=== PATIENT | male | born 1995 | race Caucasian/White ===

== ENCOUNTER 2022-07-07 09:47 | Emergency (ER) | payer OTHER, SELFPAY ==
--- NOTE | ~2022-07-07 | XR_ITS ---
XR chest 2V DATE: 07/07/2022 11:45 INDICATION: Fever, cough TECHNIQUE: PA and lateral views COMPARISON: None FINDINGS: Normal heart size. No hilar or mediastinal enlargement. No pulmonary infiltrate or consolid ation, pleural effusion or pulmonary vascular congestion or pneumothorax. Included skeletal structures are unremarkable. IMPRESSION: Negative Reviewed, dictated and finalized at location [facility]. CONTENT MANAGER IMPRESSION: Negative
--- NOTE | ~2022-07-07 | CT_ITS ---
EXAMINATION: CT abdomen pelvis w con DATE: 07/07/2022 12:58 INDICATION: Epigastric abdominal pain, fever, nausea and vomiting TECHNIQUE: Computed tomography (CT) of the abdomen and pelvis was performed with 100 CC Omnipaque 350 intravenous contrast. Automated exposure control and iterative reconstruction technique were employe d. Exam dose: 479.28 mGy-cm total exam DLP. COMPARISON: 07/07/2022 PA and lateral chest FINDINGS: The lung bases are clear. Heart size is normal. No pericardial or pleural effusion. 7 mm probable right hepatic cyst or hamartoma. The liver is otherwise unremarkable. A gallstone appea rs normal. No pericholecystic fluid or fat stranding or gallbladder wall thickening. No bile duct or pancreatic duct dilatation. Splenic size is within normal range. No pancreatic duct dilatation or larry cification. Normal morphology of the adrenal glands. No renal mass lesion or urinary tract calculus or hydroureteronephrosis. The urinary bladder and pros holt gland are unremarkable. Normal appendix. There is a prominent amount of fecal material within the colon but no bowel obstruct ion, bowel wall thickening, pneumatosis or intraperitoneal free air is detected. Normal caliber of the abdominal aorta. No intraperitoneal or retroperitoneal or pelvic mass lesion or adenopathy or ascites. IMPRESSION: Normal appendix 7 mm hepatic probable cyst or hamartoma Reviewed, dictated and finalized at [facility]. Reviewed, dictated and finalized at location [facility]. WASHER TENDER
[2022-07-07 10:26] VITALS: BP 157/82; PULSE 110; RESP 16; TEMP 37.2; O2SAT 96
[2022-07-07 11:19] VITALS: RESP 18; O2SAT 97
[2022-07-07 11:19] LABS: Influenza A QL RT-PCR Negative (Negative); Influenza B QL RT-PCR Negative (Negative); SARS-CoV-2 RNA PCR Negative
--- NOTE | 2022-07-07 11:31 | ED.GENADULT ---
HPI - General Adult General Chief complaint: Unspecified Stated complaint: fever for 1 month Time Seen by Provider: 07/07/22 11:18 History of Present Illness HPI narrative: 27-year-old male here for evaluation of nausea vomiting and epigastric discomfort for the past 3 days. Patient states that he has been unable to keep down any p.o. Notes a burning epigastric discomfort after vomiting. Denies exposure to new or suspicious foods. No sick contacts. Patient states he has had intermittent fevers for the past month, reaching as high as 103. First checked his temperature a month ago because he had chills and a cough, no other symptoms. The cough has since resolved but his fevers have persisted, notes improvement after taking ibuprofen. Last dose was yesterday. No leg swelling, chest pain, shortness of breath, diarrhea, constipation. Related Data Allergies Allergy/AdvReac Type Severity Reaction Status Date / Time No Known Allergies Allergy Verified 07/07/22 11:22 Review of Systems Review of Systems: Gen: Reports fevers. Eyes: Denies eye pain or visual change ENT: Denies congestion Respiratory: Reports cough. Denies shortness of breath CV: Denies chest pain or palpitations GI: Reports nausea, vomiting, abdominal pain. denies diarrhea denies burning, urgency, frequency or hematuria Musculoskeletal: Denies back pain or muscle pain Neuro: Denies numbness, tingling, weakness or focal weakness Skin: Denies rash Except as documented, all other systems reviewed and negative Exam Narrative: APPEARANCE: Nontoxic appearing. Well appearing, no pain in distress, well-nourished. Head: Normocephalic and atraumatic. EYES: PERRLA/EOMI, conjunctivae clear NOSE: No nasal drainage EARS: External ear normal in appearance THROAT: Oropharynx is clear. Mucous membranes are moist. NECK: Supple. No adenopathy, no masses. RESPIRATORY: Airway patent, respirations nonlabored. Clear to auscultation bilaterally, no rales, rhonchi, wheezing. CARDIOVASCULAR: Regular rate and rhythm without murmurs, rubs, or gallops. ABDOMINAL: No abdominal tenderness. Normoactive bowel sounds. Soft, nontender, nondistended. No rebound tenderness or guarding. MUSCULOSKELETAL: Extremities are warm and well-perfused. Moves all extremities well. No edema. NEURO: Normal speech. No focal neurologic deficits. SKIN: Skin is warm and dry. No rashes. PSYCHIATRIC: Normal affect/mood.. Course Vital Signs Vital signs: Vital Signs Temperature 98.9 F 07/07/22 10:26 Pulse Rate 110 H 07/07/22 10:26 Respiratory Rate 16 07/07/22 10:26 Blood Pressure 157/82 H 07/07/22 10:26 Pulse Oximetry 96 07/07/22 10:26 Temperature 98.9 F 07/07/22 10:26 Pulse Rate 70 07/07/22 14:30 Respiratory Rate 18 07/07/22 14:30 Blood Pressure 148/78 H 07/07/22 14:30 Pulse Oximetry 96 07/07/22 14:30 Medical Decision Making MDM Narrative Medical decision making narrative: 27-year-old male here for evaluation of nausea vomiting and intermittent fevers over the past 1 year. His vital signs are normal and he is afebrile here. He has no abdominal tenderness on exam. Patient was given fluids, Zofran and Pepcid in the ED with improvement of his symptoms. His chest x-ray is clear. Basic labs are unremarkable; white count is 11; ESR is slightly elevated to 26 and crp is 8.8. CT abdomen pelvis without acute findings; patient is aware of hepatic cyst. Unclear etiology of patient's fever although it is reassuring that he is afebrile here. He will be discharged home to follow-up with his primary care doctor. Vital Signs Vital Signs: Vital Signs Temperature 98.9 F 07/07/22 10:26 Pulse Rate 110 H 07/07/22 10:26 Respiratory Rate 16 07/07/22 10:26 Blood Pressure 157/82 H 07/07/22 10:26 Pulse Oximetry 96 07/07/22 10:26 Temperature 98.9 F 07/07/22 10:26 Pulse Rate 70 07/07/22 14:30 Respiratory Rate 18 07/07/22 14:30 Blood Pressure 148/78 H 1
[2022-07-07 11:45] LABS: Basophils Absolute Auto 0.1 K/mm3 (0.0-0.1); Basophils Percent Auto 0.5 % (0.2-1.2); Eosinophils Absolute Auto 0.1 K/mm3 (0-0.3); Eosinophils Percent Auto 0.5 % (0-4.4); Hematocrit 43.9 % (42.0-52.0); Hemoglobin 14.9 g/dL (14.0-18.0); Immature Granulocyte Absolute 0.05 K/mm3 (0.00-0.031); Immature Granulocyte Percent A 0.5 % (0-0.5); Lymphocytes Absolute Auto 1.01 K/mm3 (0.9-3.2); Lymphocytes Percent Auto 9.1 % (18.3-44.2); Mean Corpuscular HGB Conc 33.9 g/dl (32-36); Mean Corpuscular Hemoglobin 31.2 pg (26-34); Mean Platelet Volume 10.8 fl (7.4-10.4); Monocytes Absolute Auto 0.8 K/mm3 (0.1-0.6); Monocytes Percent Auto 7.2 % (2.6-8.5); Neutrophils Absolute Auto 9.1 K/mm3 (1.3-6.7); Neutrophils Percent Auto 82.2 % (45.5-73.1); Platelet Count Result 158 k/mm3 (150-375); Red Blood Count 4.77 M/mm3 (4.6-6.20); Red Cell Distribution Width 14.9 % (11.5-14.5)
[2022-07-07] MEDS: SODIUM CHLORIDE 0.9% IV 1,000 ML 999 ML IV CONT (11:50)
[2022-07-07] MEDS: ONDANSETRON INJ 4 MG/2 ML VIAL IV PUSH (11:51)
[2022-07-07] MEDS: FAMOTIDINE 20 MG/2 ML VIAL IV PUSH (11:55)
[2022-07-07 11:57] LABS: Alanine Aminotransferase 39 U/L (6-50); Albumin Level 4.1 g/dL (3.5-5.1); Alkaline Phosphatase 66 U/L (38-126); Anion Gap 10 mmol/L (8-16); Aspartate Amino Transferase 56 U/L (17-59); Bilirubin,Total 0.6 mg/dL (0.2-1.3); Blood Urea Nitrogen 13 mg/dL (9-20); Calcium 8.2 mg/dL (8.4-10.2); Carbon Dioxide 25 mmol/L (22-30); Chloride 103 mmol/L (98-107); Estimated CRCL calculation 111 ml/min; Estimated Glomerular Filt Rate > 60; Glucose 146 mg/dL (65-110); Lipase 153 U/L (23-300); Potassium 4.1 mmol/L (3.4-5.0); Sodium 138 mmol/L (137-145)
[2022-07-07 12:01] LABS: CRP 8.8 mg/dL (<1.0)
[2022-07-07 12:18] LABS: Erythrocyte Sedimentation Rate 26 mm/hr (0-20)
[2022-07-07 14:30] VITALS: BP 148/78; PULSE 70; RESP 18; O2SAT 96
== END 2022-07-07 14:32 | disposition home or self-care (01) ==
PROVIDERS: Emergency Medicine; Emergency Provider Physician Assistant
DX: K29.70 Gastritis, unspecified, without bleeding (principal); R93.2 Abnormal findings on diagnostic imaging of liver and biliary tract
CPT/HCPCS: 36415; 71046; 74177; 80053; 83690; 85025; 85652; 86140; 87636; 96361; 96374; 96375; 99284; J2405; J7030; Q9967